=== PATIENT | male | born 2000 | race American Indian/Alaskan Native ===

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

== ENCOUNTER 2022-06-22 22:38 | Emergency (ER) | payer MEDICAID ==
[2022-06-22 22:42] VITALS: BP 158/84
== END 2022-06-23 01:50 | disposition left against medical advice (07) ==
LOC: ED 22:38
DX: R21 Rash and other nonspecific skin eruption (principal); Z53.21 Procedure and treatment not carried out due to patient leaving prior to being seen by health care provider